=== PATIENT | female | born 1960 | race African-American/Black ===

== ENCOUNTER 2016-12-18 19:43 | Observation (INO) | payer OTHER ==
[2016-12-18] MEDS ORDERED: MAGNESIUM SULFATE/D5W 100 ML IV PRN (20:29)
[2016-12-18] MEDS ORDERED: IPRATROPIUM/ALBUTEROL 0.5-2.5 MG/3 ML AMPUL NEB ONE ×3 (20:29)
[2016-12-18] MEDS ORDERED: METHYLPREDNISOLONE INJ 125 MG/2 ML SDV IV ONE (20:29)
--- NOTE | 2016-12-18 20:32 | ER Document Report ---
ED Medical Screen (RME) - General Stated Complaint: DIFFICULTY BREATHING Time seen by provider: 20:25 Notes: 55-year-old female, chief complaint of respiratory symptoms 1 week, worsening cough and wheezing, worsening difficulty breathing. Today symptoms are the worst. Denies fever, denies smoking directly although she has a lot of secondhand smoke, denies asthma or COPD, denies any daily medications. Physical Exam - Respiratory Respiratory status: Respiratory distress - mild, Labored, Tachypnea Breath sounds: Decreased air movement, Nonproductive cough, Wheezing - expiratory Course - Re-evaluation Re-evalutation: tachypnea, wheezing, hypoxia, tachycardia, respiratory distress on exam. Called immediately for room, level 2 triage.
--- NOTE | 2016-12-18 20:50 | ER Document Report ---
ED General - General Stated Complaint: DIFFICULTY BREATHING Mode of Arrival: Ambulatory Information source: Patient Notes: This is a 55-year-old female who presents to the ER with a one-week history of cough and congestion and worsening difficulty breathing. She states that her symptoms have become much worse today. She denies any fevers or chills. She has been coughing up clear sputum. She denies any history of asthma or COPD and does not use inhalers or nebulizers at home. She denies any sick contacts or recent travel. However, she does work in a snf. She denies any chest pain. She does have a history of hypertension but states she is not on any medications at this time. - Related Data Allergies/Adverse Reactions: No Known Allergies Allergy (Unverified 12/19/16 01:09) Past Medical History - General Information source: Patient - Social History Smoking Status: Never Smoker Frequency of alcohol use: None Drug Abuse: None Lives with: Family Family History: Reviewed & Not Pertinent - Past Medical History Cardiac Medical History: Reports: Hx Hypertension Review of Systems - Review of Systems Notes: REVIEW OF SYSTEMS: CONSTITUTIONAL : Denies fever, chills, or sweats. EENT: Denies eye, ear, throat, or mouth pain or symptoms. Denies nasal or sinus congestion. CARDIOVASCULAR: Denies chest pain. RESPIRATORY: As per history of present illness GASTROINTESTINAL: Denies abdominal pain. Denies nausea, vomiting, or diarrhea. GENITOURINARY: Denies difficulty urinating, painful urination, burning, frequency, or blood in urine. MUSCULOSKELETAL: Denies neck or back pain or joint pain or swelling. SKIN: Denies rash or skin lesions. HEMATOLOGIC : Denies easy bruising or bleeding. LYMPHATIC: Denies swollen, enlarged glands. NEUROLOGICAL: Denies altered mental status or loss of consciousness. Denies headache. PSYCHIATRIC: Denies anxiety or stress or depression. ALL OTHER SYSTEMS REVIEWED AND NEGATIVE. Physical Exam - Vital signs Vitals: Resp Pulse Ox 28 H 95 12/18/16 20:55 12/18/16 20:55 - Notes Notes: PHYSICAL EXAMINATION: GENERAL: Obese adult female, in mild to moderate respiratory distress with audible wheezing and conversational dyspnea HEAD: Atraumatic, normocephalic. EYES: Pupils equal round and reactive to light, extraocular movements intact, sclera anicteric, conjunctiva are normal. ENT: nares patent, oropharynx clear without exudates. Moist mucous membranes. NECK: Normal range of motion, supple without lymphadenopathy LUNGS: breath sounds are tight with bilateral diffuse inspiratory and expiratory wheezes HEART: tachycardic rate and regular rhythm without murmurs ABDOMEN: Soft, obese, nontender, normoactive bowel sounds. No guarding, no rebound. No masses appreciated. EXTREMITIES: Normal range of motion, no edema NEUROLOGICAL: Cranial nerves grossly intact. No gross focal motor or sensory deficits appreciated PSYCH: Normal mood, normal affect. SKIN: Warm, Dry, normal turgor, no rashes or lesions noted. Course - Re-evaluation Re-evalutation: 12/18/16 23:26 Patient reevaluated. She still has some scattered wheezes however her air movement is much improved. She has responded well to 3 neb treatments and solumedrol in the ER. Of note, she is noted to drop to 87% on room air once returning from CT. She is placed on 2L NC. CT demonstrates no PE, but concern for possible RUL pneumonia. IV antibiotics initiated. Pt's blood pressure has been significantly elevated in ER and somewhat difficult to control Case discussed with hospitalist Dr. Go, she will be admitted to telemetry. She is comfortable with this plan. - Vital Signs Vital signs: Temp Pulse Resp BP Pulse Ox 97.9 F 85 20 160/74 H 100 12/19/16 09:38 12/19/16 09:38 12/19/16 09:38 12/19/16 09:38 12/19/16 09:38 - Laboratory Result Diagrams: 12/19/16 06:53 12/19/16 06:53 Laboratory results interpreted by me: 12/18/16 12/18/16 12/19/16 21:35 21:35 00:45 WBC 10.8 H RDW 14.1 H Sodium 145.9 H Glucose 165 H Magnesium 2.5 H AST 45 H Creatine Kinase 305 H Critical Care Note - Critical Care Note Total time excluding time spent on procedures (mins): 35 - minutes of critical care time spent in direct contact evaluating and reevaluating the patient, treating symptoms, reviewing labs and studies and speaking with family and consultants excluding any procedures Discharge - Discharge Clinical Impression: Pneumonia, Bronchospasm, Hypertensive urgency Condition: Good Disposition: HOME, SELF-CARE Admitting Provider: Hospitalist - Dr Go Unit Admitted: Telemetry
[2016-12-18] MEDS ORDERED: HYDRALAZINE HCL INJ/PF 20 MG/1 ML SDV IV ONE (21:23)
[2016-12-18 21:54] LABS: VENOUS BLOOD BASE EXCESS 3.6 mmol/L; VENOUS BLOOD HCO3 30.2 mmol/L (20-32); VENOUS BLOOD PH 7.37 (7.30-7.42)
[2016-12-18 21:55] LABS: ABSOLUTE BASOPHILS # (AUTO) 0.1 10^3/uL (0.0-0.2); ABSOLUTE EOSINOPHILS # (AUTO) 0.6 10^3/uL (0.0-0.6); ABSOLUTE LYMPHOCYTES (AUTO) 2.6 10^3/uL (0.5-4.7); ABSOLUTE MONOCYTES (AUTO) 0.8 10^3/uL (0.1-1.4); ABSOLUTE NEUT (AUTO) 6.7 10^3/uL (1.7-8.2); BASOPHILS % (AUTO) 0.6 % (0-2); HEMATOCRIT 38.9 % (36.0-47.0); HEMOGLOBIN 12.8 g/dL (12.0-15.5); HGB HCT DIFFERENCE -0.5; MEAN CORPUSCULAR HEMOGLOBIN 27.8 pg (27.0-33.4); MEAN CORPUSCULAR HGB CONC 32.8 g/dL (32.0-36.0); MEAN CORPUSCULAR VOLUME 85 fl (80-97); RED BLOOD COUNT 4.59 10^6/uL (3.72-5.28); RED CELL DISTRIBUTION WIDTH 14.1 % (11.5-14.0); SEGMENTED NEUTROPHILS % (AUTO) 62.4 % (42-78); WHITE BLOOD COUNT 10.8 10^3/uL (4.0-10.5)
[2016-12-18 22:10] LABS: ALANINE AMINOTRANSFERASE 38 U/L (9-52); ALBUMIN 4.1 g/dL (3.5-5.0); ALKALINE PHOSPHATASE 107 U/L (38-126); ANION GAP 15 (5-19); ASPARTATE AMINO TRANSFERASE 45 U/L (14-36); BILIRUBIN,DIRECT 0.4 mg/dL (0.0-0.4); BILIRUBIN,TOTAL 0.6 mg/dL (0.2-1.3); BLOOD UREA NITROGEN 12 mg/dL (7-20); CARBON DIOXIDE 26 mmol/L (22-30); CHLORIDE 105 mmol/L (98-107); CREATINE KINASE 305 U/L (30-135); CREATININE RESULT 0.84 mg/dL (0.52-1.25); GLUCOSE 165 mg/dL (75-110); POTASSIUM 3.8 mmol/L (3.6-5.0); SODIUM 145.9 mmol/L (137-145)
[2016-12-18 22:34] LABS: CREATINE KINASE MB 2.88 ng/mL (<4.55); TROPONIN I 0.014 ng/mL
[2016-12-18] MEDS ORDERED: LORAZEPAM INJ 2 MG/1 ML VIAL IV ONE (23:29)
[2016-12-19] MEDS ORDERED: LABETALOL HCL INJ 20 MG/4 ML DISP.SYRIN IV ONE (00:56)
[2016-12-19] MEDS ORDERED: LEVALBUTEROL HCL NEB 1.25 MG/3 ML AMPUL NEB ONE (00:56)
[2016-12-19] MEDS ORDERED: CEFTRIAXONE 1 GM/D5W RTU 50 ML IV ONE (00:57)
[2016-12-19] MEDS ORDERED: NORMAL SALINE 500 ML IV ONE (00:58)
[2016-12-19] MEDS ORDERED: AZITHROMYCIN INJ 500 MG VIAL IV ONE (00:58)
[2016-12-19] MEDS ORDERED: NITROGLYCERIN 2% OINTMENT 1 GM PACKET TP ONE (01:43)
[2016-12-19] MEDS ORDERED: ASPIRIN 81 MG TABLET, CHEWABLE PO ONE (01:44)
[2016-12-19] MEDS ORDERED: INSULIN LISPRO 100 UNIT/ML 3 ML VIAL SUBCUT PRN (03:06)
[2016-12-19] MEDS ORDERED: DEXTROSE 40% GEL 15 GM TUBE PO PRN ×2 (03:06)
[2016-12-19] MEDS ORDERED: GLUCAGON,HUMAN RECOMB 1 MG INJ IM PRN (03:06)
[2016-12-19] MEDS ORDERED: DEXTROSE 50%-WATER 25 GM/50 ML DISP.SYRIN IV PRN ×2 (03:06)
[2016-12-19] MEDS ORDERED: ALBUTEROL SULFATE 0.083% NEB 2.5 MG/3 ML AMPUL NEB PRN (03:07)
[2016-12-19] MEDS ORDERED: ACETAMINOPHEN 325 MG TABLET PO PRN (03:07)
[2016-12-19] MEDS ORDERED: GUAIFENESIN SYRP 200 MG/10 ML UDC PO PRN (03:07)
[2016-12-19] MEDS ORDERED: ENALAPRILAT DIHYDRATE INJ/PF 1.25 MG/1 ML SDV IV PRN (03:09)
[2016-12-19 03:23] LABS: ADD ON TESTING BLD IN LAB ACKNOWLEDGE
[2016-12-19 03:32] LABS: MAGNESIUM 2.5 mg/dL (1.6-2.3)
--- NOTE | 2016-12-19 03:45 | PDOC H&P ---
History of Present Illness Admission Date/PCP: 12/19/16 02:14 PCP None Patient complains of: difficulty breathing History of Present Illness: KATRINA IBRAHIM is a 55 year old obese -Belgian female, with known underlying hypertension, but off medication for same for "quite some time," leg cramps, arthritis, significant history of secondhand smoke exposure from family members, but with no known underlying pulmonary disease herself, who presents to the emergency room for evaluation of above complaint. Patient has been discussed with emergency room physician who evaluated the patient. She describes a one-week history of intermittent cough productive of clear sputum. Slowly progressive difficulty breathing, in particular over the last 24 hours. Particularly noticeable with much of any exertion. Blood pressure was quite elevated upon arrival, and has required a number of different medications to achieve reasonable control. Denies fever chills, or chest pain. Patient does work in a halfway. Up-to-date with flu vaccination. Currently resting quietly, stating she is breathing a bit more comfortably.. Laboratory results are listed in [employer] and are reviewed. X-ray summary results are listed below, with full report(s) reviewed. . EKG reviewed. Social history/personal habits: . 2 children. Works at [employer]. No use of alcohol tobacco or illicit drugs. Allergies/adverse reactions NKDA. Home medications none REVIEW OF SYSTEMS: Constitutional: No fever or chills. Eyes: Wears glasses. ENT: No swallowing problems or complaints. No hearing problems or complaints. Pulmonary: See history and present illness. Cardiovascular: No current complaints, including chest pain. Gastrointestinal: No current complaints, including nausea or vomiting. Skin: No current complaints, including rashes. Hematologic: No unusual easy bruising or bleeding. Neurologic: Intermittent problems with leg cramps. Musculoskeletal: Joint pain from arthritis. Psychiatric: No current complaints, including anxiety or depression. Endocrine: No current complaints, including polyuria. Genitourinary: No current complaints, including dysuria. PHYSICAL EXAMINATION: Neither height nor weight are recorded on the chart. Blood pressure 188/84. Pulse 101 and regular. Respirations are 24 and unlabored. 96% saturation on 2 L oxygen per nasal cannula. Temperature is not recorded on the chart; skin feels normothermic. Female emergency room nurse Roz is present. Obese somewhat chronically ill-appearing -[place] female who nevertheless appears approximately her stated age. Pleasant awake alert and cooperative. Appears to feel a bit under the weather, so to speak, and perhaps mildly fatigued. Mildly anxious, but no agitation. Skin is warm and dry. No grossly obvious evidence of rash in areas of skin examined. No subcutaneous nodules palpated. ENT: Hearing grossly normal to normal conversation. Tongue midline on protrusion pink and slightly tacky. Eyes: No scleral icterus. Pupils equal and reactive to light at 4 mm. [place] conjunctivae. Neck is supple and nontender to gentle active range of motion and palpation. Midline trachea. No palpable thyroid nodule mass enlargement or tenderness. Lymphatic: No palpable cervical or clavicular nodes. Neck and lymphatic exams limited by patient body habitus. Psychiatric: Fair to reasonable insight into acute and chronic medical issues. Oriented to time location and why here. Lungs: Auscultation reveals equal breath sounds bilaterally. No use of accessory respiratory muscles. Breath sounds are clear other than faint brief late expiratory wheezing bilaterally. Cardiovascular: Heart regular rate and rhythm, without gallop murmur or rub. No carotid or abdominal aortic bruits. No ankle or pedal edema. palpable dorsalis pedis pulses. Abdomen:soft, obese, nontender with positive bowel sounds. Unable to adequately evaluate abdomen for masses or organomegaly due to body habitus. Extremities: Feet are warm and dry. No calf tenderness to compression. No grossly obvious visual evidence of calf swelling. Gentle manipulation of lower extremities fails to reveal any obvious evidence of injury or instability to knees hips or ankles. Neurologic: Moves upper extremities grossly normally. Patellar reflexes absent. Absent Babinski. Light touch is intact at feet. Dorsiflexion and plantarflexion of feet 5 / 5 and symmetric. Past Medical History Cardiac Medical History: Reports: Hypertension Denies: Congestive Heart Failure, DVT, Myocardial Infarction, Hyperlipidema, Pulmonary Embolism Pulmonary Medical History: Denies: Asthma, Chronic Obstructive Pulmonary Disease (COPD), Sleep Apnea EENT Medical History: Reports: Eyes - Wears glasses Denies: Ears, Throat Neurological Medical History: Reports: Other - Occasional leg cramps. Denies: Hemorrhagic CVA, Ischemic CVA, Seizures Endocrine Medical History: Reports: Obesity Denies: Diabetes Mellitus Type 1, Diabetes Mellitus Type 2, Hyperthyroidism, Hypothyroidism Renal/ Medical History: Reports: None GI Medical History: Denies: Cirrhosis, Gastroesophageal Reflux Disease, Hepatitis, Peptic Ulcer Disease Musculoskeltal Medical History: Reports: Arthritis Skin Medical History: Reports: None Psychiatric Medical History: Denies: Alcohol Dependency, Depression, General Anxiety Disorder, Substance Abuse, Tobacco Dependency Hematology: Reports: None Infectious Medical History: Denies: Clostridium Difficile, Hepatitis B, Hepatitis C, Methicillin- Resistant Staph Aureus Past Surgical History Past Surgical History: Reports: Hysterectomy Social History Information Source: Patient, Emergency Med Personnel, [facility] Records Lives with: Spouse/Significant other Smoking Status: Never Smoker Frequency of Alcohol Use: None Drugs: None - Advance Directive Resuscitation Status: Full Code Surrogate healthcare decision maker:: Family History Family History: Reviewed & Not Pertinent Parental Family History Reviewed: Yes - father of pneumonia, mother of COPD complications. Children Family History Reviewed: Yes - Healthy Sibling(s) Family History Reviewed.: Yes - Sister is hypertensive. Medication/Allergy Home Medications: Amlodipine Besylate [Norvasc 10 mg Tablet] 10 mg PO DAILY #30 tablet 12/19/16 Azithromycin [Zithromax Tri-Gian] 500 mg PO DAILY #1 pkg 12/19/16 Cefuroxime Axetil [Ceftin 500 mg Tablet] 1 tab PO BID #18 tablet 12/19/16 Fluticasone Propionate [Flonase Nasal [place] 50 Mcg/[place] 16 gm] 2 spray NASL Q12 #1 spray.pump 12/19/16 Guaifenesin [Mucinex Sr 600 mg Tablet.sa] 1,200 mg PO Q12 #8 tablet.sa 12/19/16 Prednisone [Deltasone 10 mg Tablet] 10 mg PO ASDIR PRN #21 tablet 12/19/16 Allergies/Adverse Reactions: No Known Allergies Allergy (Unverified 12/19/16 01:09) Physical Exam Vital Signs: Temp Pulse Resp BP Pulse Ox 22 H 188/84 H 91 L 12/18/16 23:16 12/19/16 02:31 12/19/16 02:31 Results Impressions: Chest X-Ray 12/18/16 20:28 IMPRESSION: NO ACUTE RADIOGRAPHIC FINDING IN THE CHEST. Chest/Abdomen CTA 12/18/16 23:28 IMPRESSION: Right upper lobar pneumonia, atelectasis, or scar. No evidence of pulmonary embolus Assessment & Plan - Diagnosis (1) Adrenal adenoma Qualifiers: Laterality: right Qualified Code(s): D35.01 - Benign neoplasm of right adrenal gland Is this a current diagnosis for this admission?: YesPlan: Discussed in layperson's terms with patient, including the need for outpatient follow-up. (2) Elevated LFTs Is this a current diagnosis for this admission?: YesPlan: Uncertain etiology. Follow-up chemistry. (3) Elevated troponin Is this a current diagnosis for this admission?: YesPlan: Likely due to elevated blood pressure. No clinical evidence of acute coronary syndrome. Repeat troponin. (4) Hypercarbia Is this a current diagnosis for this admission?: YesPlan: Suspect underlying COPD, although patient has had no formal testing for same. (5) Hypertensive urgency Is this a current diagnosis for this admission?: YesPlan: Gradual blood pressure control. Vital sign parameters on chart. (6) Pneumonia involving right lung Qualifiers: Pneumonia type: due to unspecified organism Lung location: upper lobe of lung Qualified Code(s): J18.1 - Lobar pneumonia, unspecified organism Is this a current diagnosis for this admission?: YesPlan: Patient will be admitted under pneumonia protocol. Incentive spirometry twice a day. Scheduled DuoNeb's. PRN albuterol nebs daily prednisone. Antibiotics will consist of Rocephin and intravenous Zithromax.. I strongly encouraged patient to notify staff should patient feel that her breathing is worsening. Patient is a full code. I have strongly encouraged patient not to get out of bed without notifying staff , , to avoid a fall with injury. Knee high SCDs for DVT prophylaxis, along with subcutaneous Lovenox Impression and plans were discussed with patient, who concurs. Time spent in evaluation and management of patient: 62 minutes.
[2016-12-19 04:34] LABS: VENOUS BLOOD BASE EXCESS 0.7 mmol/L; VENOUS BLOOD HCO3 25.9 mmol/L (20-32); VENOUS BLOOD PCO2 43.2 mmHg (35-63); VENOUS BLOOD PH 7.4 (7.30-7.42)
[2016-12-19 04:54] LABS: APPEARANCE,URINE CLEAR; BILIRUBIN,URINE NEGATIVE (NEGATIVE); GLUCOSE, URINE 50 mg/dL (NEGATIVE); KETONES,URINE NEGATIVE (NEGATIVE); LEUKOCYTE ESTERASE,URINE NEGATIVE (NEGATIVE); NITRITE,URINE NEGATIVE (NEGATIVE); PROTEIN,URINE 30 mg/dL (NEGATIVE); URINE SPECIFIC GRAVITY 1.012; UROBILINOGEN,URINE NEGATIVE mg/dL (<2.0)
[2016-12-19 07:20] LABS: ALANINE AMINOTRANSFERASE 32 U/L (9-52); ALBUMIN 3.8 g/dL (3.5-5.0); ALKALINE PHOSPHATASE 93 U/L (38-126); ANION GAP 13 (5-19); ASPARTATE AMINO TRANSFERASE 28 U/L (14-36); BILIRUBIN,DIRECT 0.4 mg/dL (0.0-0.4); BILIRUBIN,TOTAL 0.5 mg/dL (0.2-1.3); BLOOD UREA NITROGEN 12 mg/dL (7-20); CARBON DIOXIDE 24 mmol/L (22-30); CHLORIDE 108 mmol/L (98-107); CREATININE RESULT 0.71 mg/dL (0.52-1.25); GLUCOSE 138 mg/dL (75-110); POTASSIUM 3.9 mmol/L (3.6-5.0); SODIUM 144.5 mmol/L (137-145); TOTAL PROTEIN 7.7 g/dL (6.3-8.2)
[2016-12-19 07:21] LABS: ABSOLUTE LYMPHOCYTES (AUTO) 0.7 10^3/uL (0.5-4.7); ABSOLUTE MONOCYTES (AUTO) 0.1 10^3/uL (0.1-1.4); ABSOLUTE NEUT (AUTO) 9.8 10^3/uL (1.7-8.2); BASOPHILS % (AUTO) 0.3 % (0-2); CALCIUM 8.9 mg/dL (8.4-10.2); EOSINOPHILS % (AUTO) 0.1 % (0-6); HEMATOCRIT 37.4 % (36.0-47.0); HEMOGLOBIN 12.2 g/dL (12.0-15.5); HGB HCT DIFFERENCE -0.8; LYMPHOCYTES % (AUTO) 6.3 % (13-45); MEAN CORPUSCULAR HGB CONC 32.6 g/dL (32.0-36.0); MEAN CORPUSCULAR VOLUME 86 fl (80-97); MONOCYTES % (AUTO) 0.9 % (3-13); RED BLOOD COUNT 4.37 10^6/uL (3.72-5.28); RED CELL DISTRIBUTION WIDTH 14.1 % (11.5-14.0); SEGMENTED NEUTROPHILS % (AUTO) 92.4 % (42-78); WHITE BLOOD COUNT 10.6 10^3/uL (4.0-10.5)
--- NOTE | 2016-12-19 07:53 | EKG REPORT ---
SEVERITY:- OTHERWISE NORMAL ECG - SINUS TACHYCARDIA : Confirmed by: Dain Pulliam MD 19-Dec-2016 07:52:47
[2016-12-19] MEDS ORDERED: ENOXAPARIN SODIUM INJ 40 MG/0.4 ML DISP.SYRIN SUBCUT SCH (08:00)
[2016-12-19] MEDS ORDERED: IPRATROPIUM/ALBUTEROL 0.5-2.5 MG/3 ML AMPUL NEB SCH (08:00)
[2016-12-19 09:44] VITALS: BP 160/74
[2016-12-19] MEDS ORDERED: FLUTICASONE NASAL SPRAY 50 MCG/SPRY 120 SPRAY/16 GM NASL SCH (10:00)
[2016-12-19] MEDS ORDERED: DOCUSATE SODIUM 100 MG CAPSULE PO SCH (10:00)
[2016-12-19] MEDS ORDERED: GUAIFENESIN 600 MG TABLET.SA PO SCH (10:00)
[2016-12-19] MEDS ORDERED: AMLODIPINE BESYLATE 10 MG TABLET PO SCH (10:00)
[2016-12-19] MEDS ORDERED: PREDNISONE 20 MG TABLET PO SCH (10:00)
--- NOTE | 2016-12-19 17:09 | PDOC DISCHARGE SUMMARY ---
General - Admit/Disc Date/PCP Admission Date/Primary Care Provider: 12/19/16 03:07 The patient would like to follow with Dr. Hansen within one week for hospital follow-up and to establish primary care. Discharge Date: 12/19/16 - Discharge Diagnosis (1) Right upper lobe pneumonia Is this a current diagnosis for this admission?: Yes (2) Hypertensive urgency Is this a current diagnosis for this admission?: Yes (3) Adrenal adenoma Is this a current diagnosis for this admission?: Yes (4) Elevated LFTs Is this a current diagnosis for this admission?: Yes (5) History of second hand smoke exposure Is this a current diagnosis for this admission?: No - Additional Information Resuscitation Status: Full Code Discharge Diet: As Tolerated, Cardiac Discharge Activity: Activity As Tolerated, Balance Activity w/Rest, Slowly Increase Activity Home Medications: Amlodipine Besylate [Norvasc 10 mg Tablet] 10 mg PO DAILY #30 tablet 12/19/16 Azithromycin [Zithromax Tri-Gian] 500 mg PO DAILY #1 pkg 12/19/16 Cefuroxime Axetil [Ceftin 500 mg Tablet] 1 tab PO BID #18 tablet 12/19/16 Fluticasone Propionate [Flonase Nasal [place] 50 Mcg/[place] 16 gm] 2 spray NASL Q12 #1 spray.pump 12/19/16 Guaifenesin [Mucinex Sr 600 mg Tablet.sa] 1,200 mg PO Q12 #8 tablet.sa 12/19/16 Prednisone [Deltasone 10 mg Tablet] 10 mg PO ASDIR PRN #21 tablet 12/19/16 History of Present Illness Patient complains of: Difficulty breathing History of Present Illness: KATRINA IBRAHIM is a 55 year old obese -Y[place]i female, with known underlying hypertension, but off medication for same for "quite some time," leg cramps, arthritis, significant history of secondhand smoke exposure from family members, but with no known underlying pulmonary disease herself, who presents to the emergency room for evaluation of difficulty breathing. The patient described a one-week history of intermittent cough and congestion, productive of clear sputum. Slowly progressive worsening difficulty breathing, in particular over the last 24 hours. Particularly noticeable with much of any exertion. Blood pressure was quite elevated upon arrival, and has required a number of different medications to achieve reasonable control. Denies fever chills, or chest pain. Up-to-date with flu vaccination. The patient was referred to the hospitalist remission and management. Hospital Course Hospital Course: The patient was admitted to continue his telemetry unit. The patient was placed on scheduled nebs, IV antibiotic coverage, expectorants, supplemental O2 , incentive spirometry and flutter valve. Sputum culture was unable to be obtained. The patient was transitioned back to baseline oxygen and was on room air at the time of rounding. Patient had dramatic symptom resolution and is ready for discharge. The patient's blood pressures have been significantly elevated and had to be control with IV blood pressure medications. The patient was started on Norvasc for which she tolerated blood pressures with a reasonable range. The patient was educated on this and has agreed to follow-up and establish primary care for management of her hypertension. Physical Exam Vital Signs: Temp Pulse Resp BP Pulse Ox 97.9 F 85 20 160/74 H 100 12/19/16 09:38 12/19/16 09:38 12/19/16 09:38 12/19/16 09:38 12/19/16 09:38 Intake & Output 12/17/16 12/18/16 12/19/16 23:59 23:59 23:59 Intake Total 250 Output Total 400 Balance -150 Weight 96 kg General appearance: PRESENT: no acute distress, well-developed, well-nourished Head exam: PRESENT: atraumatic, normocephalic Eye exam: PRESENT: conjunctiva pink, EOMI, PERRLA. ABSENT: scleral icterus Ear exam: PRESENT: normal external ear exam Mouth exam: PRESENT: moist, tongue midline Neck exam: ABSENT: carotid bruit, JVD, lymphadenopathy, thyromegaly Respiratory exam: PRESENT: clear to auscultation stacy. ABSENT: rales, rhonchi, wheezes Cardiovascular exam: PRESENT: RRR. ABSENT: diastolic murmur, rubs, systolic murmur Pulses: PRESENT: normal dorsalis pedis pul Vascular exam: PRESENT: normal capillary refill GI/Abdominal exam: PRESENT: normal bowel sounds, soft. ABSENT: distended, guarding, mass, organolmegaly, rebound, tenderness Rectal exam: PRESENT: deferred Extremities exam: PRESENT: full ROM. ABSENT: calf tenderness, clubbing, pedal edema Neurological exam: PRESENT: alert, awake, oriented to person, oriented to place , oriented to time, oriented to situation, CN II-XII grossly intact. ABSENT: motor sensory deficit Psychiatric exam: PRESENT: appropriate affect, normal mood. ABSENT: homicidal ideation, suicidal ideation Skin exam: PRESENT: dry, intact, warm. ABSENT: cyanosis, rash Results Laboratory Results: 12/19/16 06:53 12/19/16 06:53 12/19/16 12/19/16 12/19/16 03:42 04:45 06:53 WBC 10.6 H RBC 4.37 Hgb 12.2 Hct 37.4 MCV 86 MCH 28.0 MCHC 32.6 RDW 14.1 H Plt Count 233 Seg Neutrophils % 92.4 H Lymphocytes % 6.3 L Monocytes % 0.9 L Eosinophils % 0.1 Basophils % 0.3 Absolute Neutrophils 9.8 H Absolute Lymphocytes 0.7 Absolute Monocytes 0.1 Absolute Eosinophils 0.0 Absolute Basophils 0.0 VBG pH 7.40 VBG pCO2 43.2 VBG HCO3 25.9 VBG Base Excess 0.7 Sodium Potassium Chloride Carbon Dioxide Anion Gap BUN Creatinine Est GFR ( Amer) Est GFR (Non-Af Amer) Glucose Calcium Total Bilirubin AST ALT Alkaline Phosphatase Total Protein Albumin Urine Color COLORLESS Urine Appearance CLEAR Urine pH 6.0 Ur Specific [place] 1.012 Urine Protein 30 H Urine Glucose (UA) 50 H Urine Ketones NEGATIVE Urine Blood NEGATIVE Urine Nitrite NEGATIVE Ur Leukocyte Esterase NEGATIVE Urine WBC (Auto) 1 Labs- Last Values WBC 10.6 10^3/uL (4.0-10.5) H 12/19/16 06:53 RBC 4.37 10^6/uL (3.72-5.28) 12/19/16 06:53 Hgb 12.2 g/dL (12.0-15.5) 12/19/16 06:53 Hct 37.4 % (36.0-47.0) 12/19/16 06:53 MCV 86 fl (80-97) 12/19/16 06:53 MCH 28.0 pg (27.0-33.4) 12/19/16 06:53 MCHC 32.6 g/dL (32.0-36.0) 12/19/16 06:53 RDW 14.1 % (11.5-14.0) H 12/19/16 06:53 Plt Count 233 10^3/uL (150-450) 12/19/16 06:53 Seg Neutrophils % 92.4 % (42-78) H 12/19/16 06:53 Lymphocytes % 6.3 % (13-45) L 12/19/16 06:53 Monocytes % 0.9 % (3-13) L 12/19/16 06:53 Eosinophils % 0.1 % (0-6) 12/19/16 06:53 Basophils % 0.3 % (0-2) 12/19/16 06:53 Absolute Neutrophils 9.8 10^3/uL (1.7-8.2) H 12/19/16 06:53 Absolute Lymphocytes 0.7 10^3/uL (0.5-4.7) 12/19/16 06:53 Absolute Monocytes 0.1 10^3/uL (0.1-1.4) 12/19/16 06:53 Absolute Eosinophils 0.0 10^3/uL (0.0-0.6) 12/19/16 06:53 Absolute Basophils 0.0 10^3/uL (0.0-0.2) 12/19/16 06:53 VBG pH 7.40 (7.30-7.42) 12/19/16 03:42 VBG pCO2 43.2 mmHg (35-63) 12/19/16 03:42 VBG HCO3 25.9 mmol/L (20-32) 12/19/16 03:42 VBG Base Excess 0.7 mmol/L 12/19/16 03:42 Sodium 144.5 mmol/L (137-145) 12/19/16 06:53 Potassium 3.9 mmol/L (3.6-5.0) 12/19/16 06:53 Chloride 108 mmol/L (98-107) H 12/19/16 06:53 Carbon Dioxide 24 mmol/L (22-30) 12/19/16 06:53 Anion Gap 13 (5-19) 12/19/16 06:53 BUN 12 mg/dL (7-20) 12/19/16 06:53 Creatinine 0.71 mg/dL (0.52-1.25) 12/19/16 06:53 Est GFR ( Amer) > 60 (>60) 12/19/16 06:53 Est GFR (Non-Af Amer) > 60 (>60) 12/19/16 06:53 Glucose 138 mg/dL (75-110) H 12/19/16 06:53 POC Glucose 147 mg/dL (70-110) H 12/19/16 06:11 Calcium 8.9 mg/dL (8.4-10.2) 12/19/16 06:53 Magnesium 2.5 mg/dL (1.6-2.3) H 12/19/16 00:45 Total Bilirubin 0.5 mg/dL (0.2-1.3) 12/19/16 06:53 Direct Bilirubin 0.4 mg/dL (0.0-0.4) 12/19/16 06:53 Indirect Bilirubin Not Reportable 12/19/16 06:53 Neonat Total Bilirubin Not Reportable 12/19/16 06:53 AST 28 U/L (14-36) 12/19/16 06:53 ALT 32 U/L (9-52) 12/19/16 06:53 Alkaline Phosphatase 93 U/L (38-126) 12/19/16 06:53 Creatine Kinase 305 U/L (30-135) H 12/18/16 21:35 CK-MB (CK-2) 2.88 ng/mL (<4.55) 12/18/16 21:35 Troponin I 0.049 ng/mL 12/19/16 06:53 NT-Pro-B Natriuret Pep 98 pg/mL (5-900) 12/18/16 21:35 Total Protein 7.7 g/dL (6.3-8.2) 12/19/16 06:53 Albumin 3.8 g/dL (3.5-5.0) 12/19/16 06:53 TSH 1.69 uIU/mL (0.47-4.68) 12/19/16 00:45 Urine Color COLORLESS 12/19/16 04:45 Urine Appearance CLEAR 12/19/16 04:45 Urine pH 6.0 (5.0-9.0) 12/19/16 04:45 Ur Specific [place] 1.012 12/19/16 04:45 Urine Protein 30 mg/dL (NEGATIVE) H 12/19/16 04:45 Urine Glucose (UA) 50 mg/dL (NEGATIVE) H 12/19/16 04:45 Urine Ketones NEGATIVE mg/dL (NEGATIVE) 12/19/16 04:45 Urine Blood NEGATIVE (NEGATIVE) 12/19/16 04:45 Urine Nitrite NEGATIVE (NEGATIVE) 12/19/16 04:45 Urine Bilirubin NEGATIVE (NEGATIVE) 12/19/16 04:45 Urine Urobilinogen NEGATIVE mg/dL (<2.0) 12/19/16 04:45 Ur Leukocyte Esterase NEGATIVE (NEGATIVE) 12/19/16 04:45 Urine WBC (Auto) 1 /HPF 12/19/16 04:45 Urine Bacteria (Auto) TRACE /HPF 12/19/16 04:45 Squamous Epi Cells Auto <1 /HPF 12/19/16 04:45 Urine Mucus (Auto) RARE /LPF 12/19/16 04:45 Urine Ascorbic Acid NEGATIVE (NEGATIVE) 12/19/16 04:45 12/18/16 22:18 Blood Culture - Pending Blood 12/18/16 21:35 Blood Culture - Pending Blood Impressions: Chest X-Ray 12/18/16 20:28 IMPRESSION: NO ACUTE RADIOGRAPHIC FINDING IN THE CHEST. Chest/Abdomen CTA 12/18/16 23:28 IMPRESSION: Right upper lobar pneumonia, atelectasis, or scar. No evidence of pulmonary embolus Qualifiers PATEINT BEING DISCHARGED WITH ANY OF THE FOLLOWING DIAGNOSIS?: No Plan Discharge Plan: The patient is to follow-up and establish primary care with her request of Dr. Hansen. The patient will need to follow-up pneumonia as well as hypertension management. The patient was started on Norvasc for this. She was given antibiotic coverage. Patient will also need to follow-up findings CTA suggestive of renal adenoma. Time Spent: Greater than 30 Minutes - My time spent on this discharge including assessment plan physical examination patient education resource alignment and 2 visits is 60 minutes.
[2016-12-19] MEDS ORDERED: CEFTRIAXONE 1 GM/D5W RTU 1 GM/50 ML RTUPB IV SCH (22:00)
[2016-12-19] MEDS ORDERED: AZITHROMYCIN 500 MG in DEXTROSE 5%-WATER 250 ML IV SCH (22:00)
== END 2016-12-19 10:22 | disposition home or self-care (01) ==
LOC: ER 19:43 → EH 12-19 02:14 → UNDOADMIN 12-19 02:14 → INTOOBSV 12-19 03:07 → EH 12-19 03:07 → 4S 12-19 04:01 → EH 12-19 04:01
PROVIDERS: ADMIT Family Medicine; ATTEND Family Medicine
PROC: 3E0F7GC Introduction of Other Therapeutic Substance into Respiratory Tract, Via Natural or Artificial Opening (ICD-10-PCS; principal; 2016-12-18)
DX: J18.1 Lobar pneumonia, unspecified organism (principal); I16.0 Hypertensive urgency; D35.01 Benign neoplasm of right adrenal gland; M19.90 Unspecified osteoarthritis, unspecified site; R79.89 Other specified abnormal findings of blood chemistry; E66.9 Obesity, unspecified; R06.89 Other abnormalities of breathing; R09.02 Hypoxemia; Z87.898 Personal history of other specified conditions; Z82.5 Family history of asthma and other chronic lower respiratory diseases; Z83.1 Family history of other infectious and parasitic diseases; Z82.49 Family history of ischemic heart disease and other diseases of the circulatory system; Z68.36 Body mass index [BMI] 36.0-36.9, adult
CPT/HCPCS: 93005; 94640 ×3; 99291; 96375; 96365; 36415 ×2; 87040; 82553; 82962; 82550; 83735; 84443; 85025 ×2; 80053 ×2; 81001; 84484 ×2; 82803 ×2; 83880; 71010; 71275; 93010; G0378 ×2; J0360; J3490 ×3; J2930; J1650; J2060; J3475; J7512; J7040; J0456; J0696; J7620 ×2